=== PATIENT | female | born 1980 | race Caucasian/White ===

== ENCOUNTER 2024-11-17 15:50 | Emergency (ER) | payer OTHER, SELFPAY ==
[2024-11-17 15:54] VITALS: BP 128/79
--- NOTE | 2024-11-17 18:00 | ED.GENMED ---
Addendum entered and electronically signed by Jacob Deras DO 11/17/24 21:38:
Update patient feeling better, Rx sent to [facility] in [facility]
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
Original Note:
History of Present Illness
General
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
Source: patient
Exam Limitations: none
Time Seen by Provider: 11/17/24 17:34
Nursing documentation reviewed up to this point in time: agreed with
History of Present Illness
History of Present Illness:
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
never had a laparoscope though, previously on control pills now on Ponstaon to take when she starts her period, tells me that that she had very severe pelvic pain with the start of her period today similar but worse than her typical pain no
relief with her meds, came here now states she is feeling better denies denies any prior pelvic surgeries she did start seeing a functional medicine physician told that she had a leaky gut, Rose's and that she should start taking
progesterone to help with her menstrual cramps
Past History
Past History
ED Past Medical History: Other (pelvic pain with periods)
ED Past Surgical History: None
Social History
Tobacco: Non-smoker
Alcohol: None
Drug: None
Personal: Single
Living: alone
Employment: Employed
Family History
Family History: Unable to obtain (Mother with a chocolate cyst)
Review of Systems
Review of Systems
All Other Systems: Not applicable
Constitutional: Denies fever or fatigue
ABD/GI: Reports abdominal pain
: Reports bleeding
Phy Exam
Physical Exam
Physical Exam:
Physical Exam
General: no apparent distress, not acutely ill
Neck: No jaundice
Heart: Regular
Lungs: no acute respiratory distress. clear bilaterally
Abdomen: Soft nontender
Neuro: alert and oriented. no focal neurological deficits
Skin: no rash
Psychiatric: well kept. interactive and cooperative
Extremities: no edema.
Course
Orders/Labs/Results
Orders:
Orders
11/17/24 16:06
Test Result ONCE
11/17/24 17:54
Test Result ONCE
11/17/24 18:38
HCG, Urine Qualitative Screen Stat
Date Specimen was Collected: 11/17/24
Time Specimen was Collected: 18:37
11/17/24 18:42
Oxycodone/Acetaminophen [Percocet 5/325] 1 tablet PO NOW STA
11/17/24 19:28
US Pelvis Only (non-obstetric) Urgent
Comment:
Reason For Exam: pain
11/17/24 16:06
11/17/24 16:06
Vital Signs
Initial and Last Documented VS:
Initial Vital Signs
Temp Pulse Resp BP Pulse Ox
98.3 F 80 18 128/79 99
11/17/24 15:54 11/17/24 15:54 11/17/24 15:54 11/17/24 15:54 11/17/24 15:54
Last Documented Vital Signs
Temp Pulse Resp BP Pulse Ox
98.3 F 74 15 117/64 99
11/17/24 15:54 11/17/24 18:41 11/17/24 18:41 11/17/24 18:41 11/17/24 18:41
MDM/Problems Addressed
Differential Diagnosis Includes:
Dysfunctional uterine bleeding, painful periods dysmenorrhea endometriosis ectopic
MDM/Problems Addressed:
Pelvic pain
Chronic conditions affecting care:
Chronic pelvic pain
*Pulse Oximetry
SaO2: 99
Oxygen Mode of Delivery: Room air
Patient hypoxic: no
*Critical Care Note
Total Time (30-74mins, 75-104mins- exclusive of procedures): Not Applicable
Update Note
Update Note:
6 PM, patient feeling better PDR for Ponstan noted can take it 3 times a day
Will confirm that she is not
715 urine hCG negative
Long conversation with patient she will take her second dose Ponstan today, will check an ultrasound rule out torsion,
Low index of suspicion for other surgical emergency that we would need a CT scan to diagnose
Will provide serial abdominal exams
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
ED Attending Note
-
Portions of this chart may have been created with voice recognition software.� Occasional wrong word or��sound alike� substitutions may have occurred due to the inherent limitations of voice recognition software.
Discharge Plan
Departure
Referrals:
UNKNOWN - PT DOES,NOT KNOW [Family Provider]
Interventions
Interventions:
*Risk Screen - Suicide Last Done: 11/17/24 15:54
*General Assessment Last Done: 11/17/24 15:54
*Neglect/Abuse Screening Last Done: 11/17/24 15:54
*ED COVID-19 Vaccine History Last Done: 11/17/24 15:54
ED-Female Genitourinary Assessment Last Done: 11/17/24 17:45
Discharge Date and Time
Print Language: DANISH
[2024-11-17 18:41] VITALS: BP 117/64
[2024-11-17 18:49] LABS: HCG, Urine Qualitative Screen Negative
[2024-11-17] MEDS: PERCOCET 5/325 1 TABLET PO (19:34)
== END 2024-11-17 22:08 | disposition home or self-care (01) ==
LOC: EMR 15:50
PROVIDERS: EMERGENCY PHYSICIAN Emergency Medicine
DX: R10.2 Pelvic and perineal pain (principal); N94.6 Dysmenorrhea, unspecified; G89.29 Other chronic pain; E06.3 Autoimmune thyroiditis
CPT/HCPCS: 99284; 76856; 81025